=== PATIENT | female | born 1965 | race Caucasian/White ===

== ENCOUNTER → 2017-01-16 | Outpatient (CLI) | payer OTHER ==
[~2017-01-16] MED LIST: AMLO10TA2 PO; ATEN100T PO; CHOL10003 PO; FENO134C PO; FURO40TA6 PO; HUM100VI6 SC; METF10002 PO; OMEG-14 PO; PANT40TA5 PO; PARO40TA3 PO; POTA10TA17 PO; RAMI10CA PO; SITA100T PO; SPIR25TA3 PO
[2017-01-16 11:59] LABS: ASPARTATE AMINO TRANSFERASE 41 U/L (15-37); BLOOD UREA NITROGEN 17 mg/dL (7-18)
== END | disposition home or self-care (01) ==
LOC: STAR 09:56
PROVIDERS: ATTEND Urology
DX: Z01.818 Encounter for other preprocedural examination (principal)
CPT/HCPCS: 36415; 80053; 81003; 85025; 87086; 93005

== ENCOUNTER 2017-01-22 08:17 | Day surgery (SDC) | payer OTHER ==
[~2017-01-22] VITALS: Ht 172.7 cm; Wt 99.0 kg
[2017-01-22 08:50] VITALS: BP 133/85
[2017-01-22] MEDS ORDERED: LACTATED RINGERS 1,000 ML IV SCH (08:50)
[2017-01-22] MEDS ORDERED: FENTANYL PF 100 MCG/2ML ONE ×2 (10:29→12:14)
[2017-01-22] MEDS ORDERED: MIDAZOLAM 1 MG/ML, 2ML ONE (10:32)
[2017-01-22] MEDS ORDERED: OXYcodone 5 MG/5 ML ORAL.SOL UDC PO PRN (11:00)
[2017-01-22] MEDS ORDERED: MEPERIDINE/PF 25MG/0.5ML IVPush PRN (11:00)
[2017-01-22] MEDS ORDERED: ONDANSETRON 2MG/ML, 2ML IVPush PRN (11:00)
[2017-01-22] MEDS ORDERED: HYDROmorphone 1 MG/ML, 1ML IV PRN (11:00)
[2017-01-22] MEDS ORDERED: PROMETHAZINE 25 MG/ML, 1ML IV PRN (11:00)
[2017-01-22] MEDS ORDERED: LABETALOL 5MG/ML, 20ML IV PRN (11:00)
[2017-01-22] MEDS ORDERED: hydrALAzine 20 MG/ML, 1ML IV PRN (11:00)
[2017-01-22] MEDS ORDERED: CEFAZOLIN 1,000 MG ONE (11:45)
[2017-01-22] MEDS ORDERED: SUCCINYLCHOLINE 20 MG/ML, 10ML ONE (11:45)
[2017-01-22] MEDS ORDERED: METOCLOPRAMIDE 5 MG/ML, 2ML ONE (11:45)
[2017-01-22] MEDS ORDERED: PROPOFOL 10 MG/ML, 20ML ONE (11:45)
[2017-01-22] MEDS ORDERED: ONDANSETRON 2MG/ML, 2ML ONE (11:45)
[2017-01-22] MEDS ORDERED: OXYcodone 5 MG/5 ML ORAL.SOL UDC ONE (12:15)
[2017-01-22] MEDS: FENTANYL PF 100 MCG/2ML IV PRN ×2 (12:18→12:35)
[2017-01-22] MEDS ORDERED: LABETALOL 5MG/ML, 20ML ONE (12:45)
== END 2017-01-22 14:10 | disposition home or self-care (01) ==
LOC: OUT 08:17
PROVIDERS: ATTEND Urology
DX: N13.2 Hydronephrosis with renal and ureteral calculous obstruction (principal); E83.59 Other disorders of calcium metabolism; I10 Essential (primary) hypertension; E11.9 Type 2 diabetes mellitus without complications; F41.9 Anxiety disorder, unspecified; F34.1 Dysthymic disorder; K21.9 Gastro-esophageal reflux disease without esophagitis; F32.9 Major depressive disorder, single episode, unspecified; Z88.0 Allergy status to penicillin; Z72.89 Other problems related to lifestyle; Z90.710 Acquired absence of both cervix and uterus; Z82.49 Family history of ischemic heart disease and other diseases of the circulatory system; Z80.42 Family history of malignant neoplasm of prostate
CPT/HCPCS: 52356; 74000; 76000; 82962; C2617; J0330; J0690; J2250; J2405; J2704; J2765; J3010; J7120